=== PATIENT | female | born 1980 | race American Indian/Alaskan Native ===

== ENCOUNTER 2019-12-28 09:39 | Outpatient (CLI) | payer MEDICAID ==
[2019-12-28 11:05] LABS: Blood Urea Nitrogen 6 mg/dL (7-17)
--- NOTE | 2019-12-28 12:57 | Cat Scan Report ---
CT chest w con INDICATION: Breast cancer, follow-up. TECHNIQUE: All CT scans at this location are performed using the following dose modulation technique: Automated exposure control. Helical slices were obtained through the chest following the administration of 100 cc of Omnipaque 300 COMPARISON: Chest CT dated 12/02/2019 FINDINGS: There is a large mass involving the left breast standing into the left axilla superiorly into the lef t navicular region. Size and appearance of the mass appears unchanged from the recent CT. The mass in volves the pectoralis muscles. There is mild adenopathy in the left axilla. There is a stable 11 mm nodule in the right middle lobe of the lung.. There is a 8 mm nodule in the r ight lower lobe the lung, series 2 image 96 is unchanged as well. There several tiny nodules bilatera lly measuring up to 4 mm in diameter. These appear unchanged in retrospect. No new abnormalities are identified in the lungs. No mediastinal adenopathy is seen. The heart size is normal. No acute abnormality is seen in the upper abdomen. On review of bone windows, no acute osseous abnormalities are seen. IMPRESSION: 1. There is an large mass involving the left breast with extension into the left axilla and supracla vicular region. There is mild adenopathy in the left axilla . This appears unchanged from the recent CT. There are pulmonary nodules. The largest measures 11 mm in the right middle lobe. Pulmonary nodules a ppear unchanged from the prior exam. These are suspicious for metastatic disease. Signer Name: Kody Sutton MD Signed: 12/28/2019 12:52 PM Workstation Name: [id number]
--- NOTE | 2019-12-28 16:20 | Nuclear Medicine Report ---
NUCLEAR MEDICINE BONE SCAN, WHOLE BODY INDICATION / CLINICAL INFORMATION: C50.919Malignant neoplasm of unspecified site of unspecified female. TECHNIQUE: 27.5 mCi of Tc-99m MDP were injected IV at 10:00 AM. Patient was instructed to return for imaging at 1:00 PM. Patient did not return for imaging; therefor e, no images were acquired. Signer Name: Eladio Sanches MD Signed: 12/28/2019 4:15 PM Workstation Name: [id number]
[2019-12-29] MEDS ORDERED: ONDANSETRON 4 MG/2 ML INJ ONE (13:43)
== END 2019-12-28 09:40 | disposition home or self-care (01) ==
LOC: NM 09:39
PROVIDERS: ATTEND Internal Medicine Hematology
DX: C50.919 Malignant neoplasm of unspecified site of unspecified female breast (principal); R91.1 Solitary pulmonary nodule; N63.20 Unspecified lump in the left breast, unspecified quadrant; R59.0 Localized enlarged lymph nodes
CPT/HCPCS: 36415; 71260; 78306; 82565; 84520; A9503; Q9967; J2405

== ENCOUNTER 2019-12-29 09:43 | Inpatient (IN) | payer MEDICAID ==
[2019-12-29] MEDS ORDERED: ASPIRIN 325 MG TAB PO ONE (09:53)
[2019-12-29] MEDS ORDERED: SODIUM CHLORIDE 0.9% 1000 ML IV SOLN IV ONE (09:59)
[2019-12-29] MEDS ORDERED: PIPERACILLIN/TAZOBACTAM 3.375 3.375 GM/50 ML BAG IV ONE (10:00)
--- NOTE | 2019-12-29 10:03 | Emergency Department Report ---
ED General Adult HPI - General Chief complaint: Chest Pain Stated complaint: AJ Time Seen by Provider: 12/29/19 09:53 Source: patient Mode of arrival: Stretcher Limitations: No Limitations - History of Present Illness Initial comments: Patient is 39 years old female with history of left breast cancer status post chemotherapy. Patient presented to the ER complaining of left-sided chest pain, fever of 102 last night, nausea and vomiting since last night. Patient denies any shortness of breath or abdominal pain. Patient also denied any dysuria or u rinary frequency. -: Last night Location: chest Severity scale (0 -10): 5 Associated Symptoms: denies other symptoms - Related Data Allergies Allergy/AdvReac Type Severity Reaction Status Date / Time No Known Allergies Allergy Unverified 12/28/19 09:39 ED Review of Systems ROS: Stated complaint: AJ Other details as noted in HPI Comment: All other systems reviewed and negative Constitutional: chills, fever Respiratory: cough. denies: shortness of breath, SOB with exertion, wheezing Cardiovascular: chest pain, palpitations Gastrointestinal: nausea, vomiting. denies: abdominal pain, diarrhea, constipation, hematemesis, melena, hematochezia Genitourinary: denies: urgency, dysuria Musculoskeletal: denies: back pain Neurological: denies: headache, weakness, numbness, paresthesias, confusion, abnormal gait ED Past Medical Hx - Past Medical History Hx Heart Attack/AMI: Yes Hx Asthma: Yes Additional medical history: breast cancer - Surgical History Past Surgical History?: Yes Additional Surgical History: masectomy - Social History Smoking Status: Former Smoker Substance Use Type: None ED Physical Exam - General Limitations: No Limitations General appearance: alert, in no apparent distress - Head Head exam: Present: atraumatic, normocephalic, normal inspection - Eye Eye exam: Present: normal appearance - ENT ENT exam: Present: mucous membranes dry - Neck Neck exam: Present: normal inspection, full ROM. Absent: tenderness, meningismus, lymphadenopathy, thyromegaly - Respiratory Respiratory exam: Present: normal lung sounds bilaterally - Cardiovascular Cardiovascular Exam: Present: tachycardia. Absent: systolic murmur, diastolic murmur - GI/Abdominal GI/Abdominal exam: Present: soft, normal bowel sounds. Absent: distended, guarding, rebound, rigid, organomegaly, mass, bruit, pulsatile mass, hernia - Extremities Exam Extremities exam: Present: normal inspection, full ROM, normal capillary refill. Absent: tenderness, pedal edema, joint swelling, calf tenderness - Back Exam Back exam: Present: normal inspection, full ROM. Absent: CVA tenderness (R), CVA tenderness (L), muscle spasm, paraspinal tenderness, vertebral tenderness - Neurological Exam Neurological exam: Present: alert, oriented X3, CN II-XII intact, normal gait, reflexes normal. Absent: motor sensory deficit - Psychiatric Psychiatric exam: Present: normal mood - Skin Skin exam: Present: warm, intact, normal color ED Course Vital Signs 12/29/19 12/29/19 09:48 09:59 Temperature 98.3 F Pulse Rate 107 H Respiratory 16 Rate Blood Pressure 138/91 O2 Sat by Pulse 100 Oximetry - Consultations Consultation #1: 12/29/19 13:05 I discussed the patient with Dr. Jaquez, patient oncologist. He advised to admit to the hospitalist and consult Dr. Abarca. ED Medical Decision Making - Lab Data Result diagrams: 12/29/19 10:09 12/29/19 10:09 - EKG Data -: EKG Interpreted by Ca EKG shows normal: sinus rhythm Rate: tachycardia - EKG Data Interpretation: no acute changes - Radiology Data Radiology results: report reviewed - Medical Decision Making Patient is 39 years old female with history of left breast cancer status post chemotherapy. Patient presented to the ER complaining of left-sided chest pain, fever of 102 last night, nausea and vomiting since last night. Patient denies any shortness of breath or abdominal pain. Patient also denied any dysuria or urinary frequency. EKG showed sinus tachycardia. Labs reviewed and is unremarkable. Chest x-ray showed possible pneumonia underneath the breast mass. Patient received Zosyn, normal saline. I discussed the patient with Dr. Campos, he agreed to admit the patient to medical service for further management. Critical Care Time: Yes Critical care time in (mins) excluding proc time.: 30 Critical care attestation.: If time is entered above; I have spent that time in minutes in the direct care of this critically ill patient, excluding procedure time. ED Disposition Clinical Impression: Sepsis, Chest pain Disposition: OP ADMIT IP TO THIS HOSP Is pt being admited?: Yes Condition: Stable
[2019-12-29] MEDS ORDERED: MORPHINE 4 MG/1 ML INJ IV ONE ×2 (10:11→11:26)
--- NOTE | 2019-12-29 10:11 | XRay Report ---
Chest single view INDICATION: Chest pain IMPRESSION: Severe left chest wall mass again noted. Cannot exclude opacity within the underlying lef t lung. The right lung is clear. Signer Name: Earle Nguyen MD Signed: 12/29/2019 10:07 AM Workstation Name: [id number]
[2019-12-29 10:22] LABS: Basophils % (Auto) 0.5 % (0.0-1.8); Eosinophils % (Auto) 0.7 % (0.0-4.3); Hematocrit 27.4 % (30.3-42.9); Lymphocytes # (Auto) 1.1 K/mm3 (1.2-5.4); Lymphocytes % (Auto) 17.5 % (13.4-35.0); Mean Corpuscular HGB Conc 33 % (30-34); Mean Corpuscular Volume 82 fl (79-97); Monocytes # (Auto) 0.6 K/mm3 (0.0-0.8); Monocytes % (Auto) 9.5 % (0.0-7.3); Platelet Count 321 K/mm3 (140-440); Red Blood Count 3.32 M/mm3 (3.65-5.03); Red Cell Distribution Width 17.5 % (13.2-15.2)
[2019-12-29] MEDS ORDERED: diphenhydrAMINE 50 MG/ML VIAL IV ONE ×2 (10:26→11:42)
[2019-12-29 10:42] LABS: BUN/Creatinine Ratio 11; Blood Urea Nitrogen 9 mg/dL (7-17); Calcium 9.2 mg/dL (8.4-10.2); Hemolysis Index 6
[2019-12-29 11:55] LABS: Bilirubin,Urine NEG (Negative); Blood,Urine SM (Negative); Color,Urine Straw (Yellow); Mucus,Urine FEW /HPF; Protein,Urine <15 mg/dL mg/dL (Negative); Urobilinogen,Urine < 2.0 mg/dL (<2.0); WBC,Urine < 1.0 /HPF (0.0-6.0)
[2019-12-29] MEDS ORDERED: ONDANSETRON 4 MG/2 ML INJ IV ONE (12:16)
--- NOTE | 2019-12-29 12:21 | History and Physical Report ---
History of Present Illness Chief complaint: My chest hurts when I take a deep breath History of present illness: 39-year-old female with VA, asthma, breast cancer status post 3 rounds of chemotherapy with last treatment on 12/12/2019 presents to ED for evaluation. Patient states that she has experienced left sided chest pain with deep breathing over the past 1 day with persistent symptoms over the same timeframe. Patient also reports fever to 102.5 F overnight with concomitant nausea and 2 episodes of vomiting. EMS notified and upon arrival the patient was found to be in distress and subsequently transported to [facility] for further evaluation and care. Patient seen and evaluated in the emergency department. Lab and imaging studies reviewed. Patient underwent chest x-ray and was found to have left lower lobe infiltrate consistent with pneumonia as well as pleuritic chest pain, hypokalemia, systemic inflammatory response syndrome. Patient placed in observation status and admitted to medical floor and initiated on pneumonia protocol for medical stabilization due to increased risk of decompensation. Pat ient denies chills, hemoptysis, leg swelling, calf pain, prolonged travel/immobility, individual/family history of DVT/PE/bleeding/blood clotting disorder, productive cough, skin rash, recent ill contacts. No prior admission for review. No medication listed at time of admission for reconciliation. Oncology team consulted in ED. CTA chest pending at time of admission. Past History Past Medical History: cancer, other (See HPI) Past Surgical History: mastectomy Social history: single. 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.), no change in shape, no swelling, no mass Cardiovascular: chest pain, no orthopnea, no palpitations, no rapid/irregular heart beat, no edema, no syncope Respiratory: pleurisy, no cough, no cough with sputum, no hemoptysis, no shortness of breath, no dyspnea on exertion Gastrointestinal: no abdominal pain, no nausea, no vomiting, no diarrhea, no constipation Genitourinary Female: no pelvic pain, no flank pain, no menorrhagia, no dysuria, no urinary frequency, no urgency Menstruation: no ammenorrhea, no ammenorrhea on BC, no period normal, no period heavy Rectal: no pain, no incontinence, no bleeding Musculoskeletal: no neck stiffness, no neck pain, no shooting arm pain, no arm numbness/tingling, no low back pain, no shooting leg pain Integumentary: no rash, no pruritis, no redness, no sores, no wounds, no boils, no blisters Neurological: no head injury, no transient paralysis, no paralysis, no weakness, no parathesias, no numbness Psychiatric: no anxiety, no memory loss, no change in sleep habits, no sleep disturbances, no hypersomnia, no change in libido Endocrine: no cold intolerance, no heat intolerance, no polyphagia, no excessive thirst, no polydipsia Hematologic/Lymphatic: no easy bruising, no easy bleeding, no lymphadenopathy, no lymphedema Allergic/Immunologic: no urticaria, no allergic rhinitis, no wheezing, no anaphylaxis, no angioedema Exam - Constitutional Vitals: Temp Pulse Resp BP Pulse Ox 98.3 F 107 H 16 138/91 100 12/29/19 09:59 12/29/19 09:48 12/29/19 09:48 12/29/19 09:48 12/29/19 09:48 General appearance: Present: mild distress - EENT Eyes: Present: PERRL ENT: hearing intact, clear oral mucosa - Neck Neck: Present: supple, normal ROM - Respiratory Respiratory effort: normal Respiratory: left: diminished - Cardiovascular Heart Sounds: Present: S1 & S2. Absent: rub, click - Extremities Extremities: pulses symmetrical, No edema Peripheral Pulses: within normal limits - Abdominal General gastrointestinal: Present: soft, non-tender, non-distended, normal bowel sounds Female genitourinary: Present: normal - Integumentary Integumentary: Present: clear, warm, dry - Musculoskeletal Musculoskeletal: gait normal, strength equal bilaterally - Psychiatric Psychiatric: appropriate mood/affect, intact judgment & insight - Neurologic Neurologic: CNII-XII intact, moves all extremities - Additional findings Additional findings: Nodular density to the left breast extending into the axilla with discharge in the anterior axilla Results - Labs CBC & Chem 7: 12/29/19 10:09 12/29/19 10:09 Labs: Abnormal lab results 12/29/19 12/29/19 12/29/19 Range/Units 10:09 10:09 11:19 RBC 3.32 L (3.65-5.03) M/mm3 Hgb 9.0 L (10.1-14.3) gm/dl Hct 27.4 L (30.3-42.9) % MCH 27 L (28-32) pg RDW 17.5 H (13.2-15.2) % [place] % (Auto) 9.5 H (0.0-7.3) % Lymph # 1.1 L (1.2-5.4) K/mm3 Seg Neutrophils % 71.8 H (40.0-70.0) % Potassium 3.2 L (3.6-5.0) mmol/L Urine pH 8.0 H (5.0-7.0) Assessment and Plan - Patient Problems (1) Pneumonia Current Visit: Yes Status: Acute Qualifiers: Laterality: left Lung location: upper lobe of lung Plan to address problem: Pneumonia protocol: IV antibiotic therapy, CBC, CMP, chest x-ray, pulse oxim etry, nebulizer therapy, blood culture, CT scan of the chest which is pending at time of admission (2) Systemic inflammatory response syndrome Current Visit: Yes Status: Acute Plan to address problem: CBC, CMP, urinalysis, chest x-ray, IV antibiotic therapy, IV fluid resuscitation therapy. (3) Breast cancer Current Visit: Yes Status: Acute Qualifiers: Laterality: left Plan to address problem: Oncology consulted, supportive care, pain control, continue outpatient chemo/radiation therapy as per oncology team (4) Hypokalemia Current Visit: Yes Status: Acute Plan to address problem: BMP, dietary supplementation, repeat BMP in a.m. (5) DVT prophylaxis Current Visit: Yes Status: Acute Plan to address problem: SCD to bilateral lower extremities while in bed, patient is ambulatory.
[2019-12-29] MEDS ORDERED: ACETAMINOPHEN 325 MG TAB PO PRN (12:23)
[2019-12-29] MEDS ORDERED: oxyCODONE /ACETAMINOPHEN 5-325MG TAB PO PRN (12:23)
[2019-12-29] MEDS ORDERED: VANCOMYCIN PHARMACY TO DOSE IV SCH (13:00)
[2019-12-29] MEDS ORDERED: VANCOMYCIN 1,250 MG in SODIUM CHLORIDE 0.9% 250ML 250 ML IV ONE (13:00)
[2019-12-29] MEDS ORDERED: VANCOMYCIN 1,250 MG in SODIUM CHLORIDE 0.9% 500 ML 500 ML IV ONE (13:00)
[2019-12-29] MEDS ORDERED: ALBUTEROL 2.5 MG/3 ML NEBU IH PRN (13:00)
--- NOTE | 2019-12-29 14:06 | Cat Scan Report ---
CTA CHEST WITH IV CONTRAST INDICATION: Chest pain. Shortness of breath. Left breast mass. TECHNIQUE: Axial CT images were obtained through the chest after injection of IV contrast. Coronal oblique 2-D reconstruction images were produced. 3 plane MIP reconstruction images were produced at an [employer] workstation. All CTs at this facility utilize dose reduction techniques including automated expos ure control, iterative reconstruction and weight based dosing when appropriate to reduce patient radi ation dose to as low as reasonable achievable. COMPARISON: CT of the chest, 12/28/2018 FINDINGS: No filling defects are visualized within the central or segmental pulmonary arteries to suggest pulmo nary embolism. The heart is normal in size. There is no evidence of pericardial effusion. Evaluation of the lung parenchyma again demonstrates right lung nodules which have been described on recent prio r studies. No superimposed airspace disease or pleural effusion is visualized. Limited imaging through the upper abdomen shows no evidence of acute abnormality. Evaluation of bony structures demonstrates no acute skeletal abnormality. Evaluation of soft tissue s tructures again demonstrates a large left breast mass abutting and likely invading the left pectorali s muscle. IMPRESSION: 1. No evidence of pulmonary embolism or acute parenchymal process. 2. Right pulmonary nodularity which remains suspicious for metastasis and has been described on recen t previous studies. 3. Large left breast mass most likely representing a primary breast neoplasm. Signer Name: Leidy Singh MD Signed: 12/29/2019 2:02 PM Workstation Name: [id number]
[2019-12-29] MEDS ORDERED: BENADRYL 50 MG PO PRN (15:03)
[2019-12-29] MEDS ORDERED: OXYCODONE 20 MG PO PRN (15:03)
[2019-12-29] MEDS ORDERED: ZOLPIDEM 5 MG TAB PO PRN (15:55)
[2019-12-29] MEDS ORDERED: POLYETHYLENE GLYCOL 3350 17 GM POWDER PO PRN (15:58)
[2019-12-29] MEDS: SODIUM CHLORIDE 0.9% 1000 ML 1,000 ML IV SCH (15:59)
[2019-12-29] MEDS: diphenhydrAMINE 25 MG CAP PO PRN (15:59)
[2019-12-29] MEDS: oxyCODONE 5 MG TAB PO PRN ×2 (15:59→21:39)
[2019-12-29] MEDS: ONDANSETRON 4 MG/2 ML INJ IV SCH ×2 (15:59→23:47)
[2019-12-29] MEDS: CEFEPIME/NS 2 GM/100 ML 2 GM/100 ML BAG IV SCH ×2 (16:11→21:40)
[2019-12-29] MEDS: POLYETHYLENE GLYCOL 3350 17 GM POWDER PO SCH (21:41)
[2019-12-29] MEDS ORDERED: NON-FORMULARY EACH (Ambien 10 MG) PO SCH (22:00)
[2019-12-29] MEDS ORDERED: ENOXAPARIN SC SCH (22:00)
[2019-12-29] MEDS ORDERED: ENOXAPARIN 80 MG/0.8 ML INJ SUB-Q SCH (22:00)
[2019-12-29] MEDS ORDERED: [UNRECOGNIZED DRUG - OTHER] PO SCH (22:00)
[2019-12-29] MEDS: ZOLPIDEM 5 MG TAB PO SCH ×2 (22:47→23:46)
[2019-12-30] MEDS ORDERED: VANCOMYCIN/NS 1 GM/250 ML 1 GM/250 ML BAG IV SCH (01:00)
[2019-12-30 05:06] LABS: Basophils % (Auto) 0.5 % (0.0-1.8); Eosinophils # (Auto) 0.1 K/mm3 (0.0-0.4); Hematocrit 23.8 % (30.3-42.9); Hemoglobin 7.7 gm/dl (10.1-14.3); Lymphocytes # (Auto) 1.4 K/mm3 (1.2-5.4); Lymphocytes % (Auto) 27.1 % (13.4-35.0); Mean Corpuscular HGB Conc 32 % (30-34); Mean Corpuscular Volume 83 fl (79-97); Monocytes # (Auto) 0.5 K/mm3 (0.0-0.8); Monocytes % (Auto) 10.3 % (0.0-7.3); Platelet Count 276 K/mm3 (140-440); Red Blood Count 2.87 M/mm3 (3.65-5.03); Red Cell Distribution Width 17.4 % (13.2-15.2)
[2019-12-30 05:16] LABS: Alanine Aminotransferase 5 units/L (7-56); Albumin 1.7 g/dL (3.9-5); BUN/Creatinine Ratio 13; Blood Urea Nitrogen 4 mg/dL (7-17); Hemolysis Index 0
[2019-12-30 05:37] LABS: Calcium TNR mg/dL (8.4-10.2)
[2019-12-30] MEDS: SODIUM CHLORIDE 0.9% 1000 ML 1,000 ML IV SCH ×2 (05:59→14:44)
[2019-12-30] MEDS: oxyCODONE 5 MG TAB PO PRN ×4 (05:59→23:25)
[2019-12-30] MEDS: CEFEPIME/NS 2 GM/100 ML 2 GM/100 ML BAG IV SCH (06:03)
[2019-12-30 06:10] LABS: Alanine Aminotransferase 10 units/L (7-56); Albumin 3.1 g/dL (3.9-5); BUN/Creatinine Ratio 9; Blood Urea Nitrogen 7 mg/dL (7-17); Calcium 8.4 mg/dL (8.4-10.2); Hemolysis Index 0
[2019-12-30] MEDS: diphenhydrAMINE 25 MG CAP PO PRN ×3 (07:01→21:10)
--- NOTE | 2019-12-30 08:32 | Progress Note ---
Assessment and Plan Assessment and plan: Patient is a 39-year-old woman with a history of CO, asthma, DVT on therapeutic Lovenox and stage 4 metastatic re-current breast cancer s/p chemotherapy with last treatment on 12/12/2019 who presents to [facility] ED with left sided CP, n/v and SOB. Patient was admitted for suspected Pneumonia but disproved on CTA chest. Patient was started on therapeutic Lovenox and she had precipitous drop in H/H. I spoke with her Oncologist Dr. Jaquez; most of her care was in [place]. * pCXR IMPRESSION: Severe left chest wall mass again noted. Cannot exclude opacity within the underlying left lung. The right lung is clear. * CTA chest IMPRESSION: 1. No evidence of pulmonary embolism or acute parenchymal process. 2. Right pulmonary nodularity which remains suspicious for metastasis and has been described on recent previous studies. 3. Large left breast mass most likely representing a primary breast neoplasm. Left sided chest pains with history AMI: stress test in AM Precipitous Drop in H/H, no signs of blooding: repeat levels and stop Lovenox Anemia, acute on chronic AOCD: monitor CBC closely Stage 4 metastatic Breast Cancer: consulted Heme/Onc Ruled out Pneumonia Ruled out SIRS based upon objective data from admission, besides being tachycardia patient was afebrile, normal RR, not hypoxic and WBC was normal Hypokalemia, mild: replete H/O of "blood clot in the neck" on home therapeutic Lovenox; hold for now until Anemia stabilizes Disposition: continue inpatient care until h/h stable and if stress test is negative tomorrow. History Interval history: Patient was seen and examined. Follow-up on current diagnosis of PNA. Overnight uneventful as no events directly reported to me. Patient denies any chest pain, nausea/vomiting or severe headaches. Imaging, nursing note, chart, labs and old chart reviewed. Discussed with patient. Hospitalist Physical - Physical exam Narrative exam: Gen: WDWN, NAD, Awake, Alert, Orientated HEENT: NCAT, EOMI, PERRL, OP Clear Neck: supple, no adenopathy, no thyromegaly, no JVD CVS/Heart: RRR, normal S1S2, pulses present bilaterally Chest/Lungs: CTA B, Symmetrical chest expansion, good air entry bilaterally GI/Abdomen: soft, NTND, good bowel sounds, no guarding or rebound /Bladder: no suprapubic tenderness, no CVA or paraspinal tenderness Extermity/Skin: no c/c/e, no obvious rash MSK: FROM x 4 Neuro: CN 2-12 grossly intact, no new focal deficits Psych: calm Breast: large hard fixed, protuding, softball size left breast mass causing deformity - Constitutional Vitals: Temp Pulse Resp BP Pulse Ox 98.1 F 86 18 100/62 96 12/30/19 05:23 12/30/19 05:23 12/30/19 05:23 12/30/19 05:23 12/30/19 08:11 General appearance: Absent: mild distress ELIZA score - Eliza Score Age > 65: (0) No Aspirin use within the Past 7 Days: (0) No 3 or more CAD Risk Factors: (1) Yes 2 or more Angina events in past 24 hrs: (1) Yes Known CAD with more than 50% Stenosis: (1) Yes Elevated Cardiac Markers: (0) No ST Deviation Greater than 0.5mm: (0) No ELIZA Score: 3 Results - Labs CBC & Chem 7: 12/30/19 Unknown 12/30/19 Unknown Labs: Laboratory Last Values WBC 5.0 K/mm3 (4.5-11.0) 12/30/19 Unknown RBC 2.87 M/mm3 (3.65-5.03) L 12/30/19 Unknown Hgb 7.7 gm/dl (10.1-14.3) L 12/30/19 Unknown Hct 23.8 % (30.3-42.9) L 12/30/19 Unknown MCV 83 fl (79-97) 12/30/19 Unknown MCH 27 pg (28-32) L 12/30/19 Unknown MCHC 32 % (30-34) 12/30/19 Unknown RDW 17.4 % (13.2-15.2) H 12/30/19 Unknown Plt Count 276 K/mm3 (140-440) 12/30/19 Unknown Lymph % (Auto) 27.1 % (13.4-35.0) 12/30/19 Unknown [place] % (Auto) 10.3 % (0.0-7.3) H 12/30/19 Unknown Eos % (Auto) 2.0 % (0.0-4.3) 12/30/19 Unknown Baso % (Auto) 0.5 % (0.0-1.8) 12/30/19 Unknown Lymph # 1.4 K/mm3 (1.2-5.4) 12/30/19 Unknown [place] # 0.5 K/mm3 (0.0-0.8) 12/30/19 Unknown Eos # 0.1 K/mm3 (0.0-0.4) 12/30/19 Unknown Baso # 0.0 K/mm3 (0.0-0.1) 12/30/19 Unknown Seg Neutrophils % 60.1 % (40.0-70.0) 12/30/19 Unknown Seg Neutrophils # 3.0 K/mm3 (1.8-7.7) 12/30/19 Unknown Sodium 144 mmol/L (137-145) 12/30/19 Unknown Potassium TNR 12/30/19 Unknown Chloride 120.9 mmol/L (98-107) H 12/30/19 Unknown Carbon Dioxide TNR 12/30/19 Unknown Anion Gap TNR 12/30/19 Unknown BUN 4 mg/dL (7-17) L 12/30/19 Unknown Creatinine TNR 12/30/19 Unknown Estimated GFR > 60 ml/min 12/30/19 Unknown BUN/Creatinine Ratio 13 % 12/30/19 Unknown Glucose 76 mg/dL (65-100) 12/30/19 Unknown Lactic Acid 1.70 mmol/L (0.7-2.0) 12/29/19 Unknown Calcium TNR 12/30/19 Unknown Total Bilirubin < 0.20 mg/dL (0.1-1.2) 12/30/19 Unknown AST 7 units/L (5-40) 12/30/19 Unknown ALT 5 units/L (7-56) L 12/30/19 Unknown Alkaline Phosphatase 30 units/L (35-129) L 12/30/19 Unknown Troponin T < 0.010 ng/mL (0.00-0.029) 12/29/19 Unknown Total Protein 3.2 g/dL (6.3-8.2) L 12/30/19 Unknown Albumin 1.7 g/dL (3.9-5) L 12/30/19 Unknown Albumin/Globulin Ratio 1.1 % 12/30/19 Unknown Urine Color Straw (Yellow) 12/29/19 11:19 Urine Turbidity Clear (Clear) 12/29/19 11:19 Urine pH 8.0 (5.0-7.0) H 12/29/19 11:19 Ur Specific [place] 1.012 (1.003-1.030) 12/29/19 11:19 Urine Protein <15 mg/dl mg/dL (Negative) 12/29/19 11:19 Urine Glucose (UA) Neg mg/dL (Negative) 12/29/19 11:19 Urine Ketones Neg mg/dL (Negative) 12/29/19 11:19 Urine Blood Sm (Negative) 12/29/19 11:19 Urine Nitrite Neg (Negative) 12/29/19 11:19 Urine Bilirubin Neg (Negative) 12/29/19 11:19 Urine Urobilinogen < 2.0 mg/dL (<2.0) 12/29/19 11:19 Ur Leukocyte Esterase Neg (Negative) 12/29/19 11:19 Urine WBC (Auto) < 1.0 /HPF (0.0-6.0) 12/29/19 11:19 Urine RBC (Auto) 1.0 /HPF (0.0-6.0) 12/29/19 11:19 U Epithel Cells (Auto) 5.0 /HPF (0-13.0) 12/29/19 11:19 Urine Mucus Few /HPF 12/29/19 11:19 Active Medications - Current Medications Current Medications: Generic Name Dose Route Start Last Admin Trade Name Freq PRN Reason Stop Dose Admin Acetaminophen 650 mg 12/29/19 12:23 Tylenol PO Q4H PRN Pain MILD(1-3)/Fever >100.5/SALEEM Albuterol 2.5 mg 12/29/19 13:00 Proventil IH Q4HRT PRN Shortness Of Breath Diphenhydramine HCl 25 mg 12/29/19 15:07 12/30/19 07:01 Benadryl PO 25 mg Q6H PRN Administration Itching Sodium Chloride 1,000 mls @ 100 mls/hr 12/29/19 12:30 12/30/19 05:59 Nacl 0.9% 1000 Ml IV 100 mls/hr DIRECT [facility] Administration Cefepime HCl 2 gm in 100 mls @ 200 mls/hr 12/29/19 13:00 12/30/19 06:03 Cefepime/Ns 2 Gm/100 Ml IV Not Given Q8H [facility] Protocol Vancomycin HCl 1 gm in 250 mls @ 166.667 mls/hr 12/30/19 01:00 12/30/19 01:06 Vancomycin/Ns 1 Gm/250 Ml IV 166.667 mls/hr Q12H [facility] Administration Ondansetron HCl 4 mg 12/29/19 16:00 12/29/19 23:47 Zofran IV 4 mg Q8H [facility] Administration Oxycodone HCl 20 mg 12/29/19 15:33 12/30/19 05:59 Roxicodone PO 20 mg Q4H PRN Administration Pain, Moderate (4-6) Oxycodone/Acetaminophen 1 tab 12/29/19 12:23 12/30/19 01:05 Percocet 5/325 PO 1 tab Q6H PRN Administration Pain, Moderate (4-6) Pneumococcal Polyvalent Vaccine 0.5 ml 12/30/19 12:00 Pneumovax 23 IM 12/30/19 12:01 .ONCE ONE Polyethylene Glycol 17 gm 12/29/19 22:00 12/29/19 21:41 Miralax 3350 PO 17 gm BID [facility] Administration Sodium Chloride 10 ml 12/29/19 22:00 12/29/19 21:41 Sodium Chloride Flush Syringe 10 Ml IV 10 ml BID [facility] Administration Sodium Chloride 10 ml 12/29/19 12:23 Sodium Chloride Flush Syringe 10 Ml IV PRN PRN LINE FLUSH Zolpidem Tartrate 10 mg 12/29/19 22:00 12/29/19 23:46 Ambien PO 10 mg QHS [facility] Administration
[2019-12-30] MEDS: ONDANSETRON 4 MG/2 ML INJ IV SCH ×3 (09:13→23:25)
[2019-12-30] MEDS: POLYETHYLENE GLYCOL 3350 17 GM POWDER PO SCH (09:13)
--- NOTE | 2019-12-30 09:47 | Hem/Onc Consultation ---
History of Present Illness - Reason for Consult Consult date: 12/30/19 breast ca Requesting physician: DELORES HOOKER - History of Present Illness Patient is a 39-year-old woman with a history of [place], asthma, DVT on therapeutic Lovenox and stage 4 metastatic re-current breast cancer s/p chemotherapy with last treatment on 12/12/2019 who presented to [facility] ED with left sided CP, n/v and SOB. Patient was admitted for suspected Pneumonia - CTA chest. Patient was started on therapeutic Lovenox and she then had precipitous drop in H/H. her Oncologist Dr. Jaquez; most of her care was in [place]. pCXR IMPRESSION: Severe left chest wall mass again noted. Cannot exclude opacity within the underlying left lung. The right lung is clear. CTA chest IMPRESSION: 1. No evidence of pulmonary embolism or acute parenchymal process. 2. Right pulmonary nodularity which remains suspicious for metastasis and has been described on recent previous studies. 3. Large left breast mass most likely representing a primary breast neoplasm. Anemia, acute on chronic AOCD: monitor CBC closely Stage 4 metastatic Breast Cancer: H/O of "blood clot in the neck" on home therapeutic Lovenox; on hold until Anemia stabilizes h/o left breast ca - 2011 [place] relapse in 2018 moved to [facility] - following Dr Jaquez - pt says 2 chemo given - as not working - plan to change chemo Past History Past Medical History: cancer, other (See HPI) Past Surgical History: mastectomy Social history: single. denies: smoking, alcohol abuse, prescription drug abuse Family history: hypertension Medications and Allergies Allergies Allergy/AdvReac Type Severity Reaction Status Date / Time No Known Allergies Allergy Verified 12/29/19 13:26 Home Medications Medication Instructions Recorded Confirmed Last Taken Type Ambien 10 mg PO HS 12/29/19 12/29/19 12/27/19 History Benadryl 50 mg PO Q6H PRN 12/29/19 12/29/19 12/28/19 History Lovenox 80 units SC BID 12/29/19 12/29/19 12/29/19 06:00 History Miralax 3350 2 tbsp PO BID 12/29/19 12/29/19 12/29/19 History oxyCODONE 20 mg PO Q4H PRN 12/29/19 12/29/19 12/28/19 History Active Meds: Active Medications Acetaminophen (Tylenol) 650 mg PO Q4H PRN PRN Reason: Pain MILD(1-3)/Fever >100.5/SALEEM Albuterol (Proventil) 2.5 mg IH Q4HRT PRN PRN Reason: Shortness Of Breath Diphenhydramine HCl (Benadryl) 25 mg PO Q6H PRN PRN Reason: Itching Last Admin: 12/30/19 07:01 Dose: 25 mg Documented by: Sodium Chloride (Nacl 0.9% 1000 Ml) 1,000 mls @ 100 mls/hr IV DIRECT [facility] Last Admin: 12/30/19 05:59 Dose: 100 mls/hr Documented by: Cefepime HCl (Cefepime/Ns 2 Gm/100 Ml) 2 gm in 100 mls @ 200 mls/hr IV Q8H [facility]; Protocol Last Admin: 12/30/19 06:03 Dose: Not Given Documented by: Vancomycin HCl (Vancomycin/Ns 1 Gm/250 Ml) 1 gm in 250 mls @ 166.667 mls/hr IV Q12H [facility] Last Admin: 12/30/19 01:06 Dose: 166.667 mls/hr Documented by: Ondansetron HCl (Zofran) 4 mg IV Q8H [facility] Last Admin: 12/30/19 09:13 Dose: 4 mg Documented by: Oxycodone HCl (Roxicodone) 20 mg PO Q4H PRN PRN Reason: Pain, Moderate (4-6) Last Admin: 12/30/19 05:59 Dose: 20 mg Documented by: Oxycodone/Acetaminophen (Percocet 5/325) 1 tab PO Q6H PRN PRN Reason: Pain, Moderate (4-6) Last Admin: 12/30/19 01:05 Dose: 1 tab Documented by: Pneumococcal Polyvalent Vaccine (Pneumovax 23) 0.5 ml IM .ONCE ONE Stop: 12/30/19 12:01 Polyethylene Glycol (Miralax 3350) 17 gm PO BID [facility] Last Admin: 12/30/19 09:13 Dose: 17 gm Documented by: Sodium Chloride (Sodium Chloride Flush Syringe 10 Ml) 10 ml IV BID [facility] Last Admin: 12/30/19 09:14 Dose: 10 ml Documented by: Sodium Chloride (Sodium Chloride Flush Syringe 10 Ml) 10 ml IV PRN PRN PRN Reason: LINE FLUSH Zolpidem Tartrate (Ambien) 10 mg PO QHS [facility] Last Admin: 12/29/19 23:46 Dose: 10 mg Documented by: Review of Systems Constitutional: other (pain chest) Ears, nose, mouth and throat: no epistaxis Breasts: mass (left breast/chest) Cardiovascular: chest pain, no edema Respiratory: no hemoptysis Gastrointestinal: no diarrhea Rectal: no pain Musculoskeletal: no neck pain Neurological: no paralysis Endocrine: no cold intolerance, no heat intolerance Hematologic/Lymphatic: no easy bruising Exam - Exam Narrative Exam: Gen: Awake, Alert, Orientated HEENT: NCAT, EOMI, PERRL, OP Clear Neck: supple, no adenopathy, no thyromegaly, no JVD CVS/Heart: RRR, normal S1S2, pulses present bilaterally Chest/Lungs: CTA B, Symmetrical chest expansion, good air entry bilaterally Breast: large hard fixed, protuding, softball size left breast mass causing deformity GI/Abdomen: soft, NTND, good bowel sounds, no guarding or rebound /Bladder: no suprapubic tenderness, no CVA or paraspinal tenderness Extermity/Skin: no c/c/e, no obvious rash MSK: moving limbs Neuro: no new focal deficits Psych: calm - Constitutional Vitals: Last Vital Signs Temp 98.1 F 12/30/19 05:23 Pulse 86 12/30/19 05:23 Resp 18 12/30/19 05:23 BP 100/62 12/30/19 05:23 Pulse Ox 96 12/30/19 08:11 General appearance: mild distress Performance status: 3-limited selfcare - EENT ENT: hearing intact Results - Labs lab Results: Laboratory Results - last 24 hr 12/29/19 12/29/19 12/29/19 10:09 10:09 10:09 WBC 6.6 RBC 3.32 L Hgb 9.0 L Hct 27.4 L MCV 82 MCH 27 L MCHC 33 RDW 17.5 H Plt Count 321 Lymph % (Auto) 17.5 [place] % (Auto) 9.5 H Eos % (Auto) 0.7 Baso % (Auto) 0.5 Lymph # 1.1 L [place] # 0.6 Eos # 0.0 Baso # 0.0 Seg Neutrophils % 71.8 H Seg Neutrophils # 4.7 Sodium 138 Potassium 3.2 L Chloride 99.7 Carbon Dioxide 25 Anion Gap 17 BUN 9 Creatinine 0.8 Estimated GFR > 60 BUN/Creatinine Ratio 11 Glucose 92 Lactic Acid 1.20 Calcium 9.2 Total Bilirubin AST ALT Alkaline Phosphatase Troponin T < 0.010 Total Protein Albumin Albumin/Globulin Ratio Urine Color Urine Turbidity Urine pH Ur Specific [place] Urine Protein Urine Glucose (UA) Urine Ketones Urine Blood Urine Nitrite Urine Bilirubin Urine Urobilinogen Ur Leukocyte Esterase Urine WBC (Auto) Urine RBC (Auto) U Epithel Cells (Auto) Urine Mucus 12/29/19 12/29/19 12/29/19 11:19 Unknown Unknown WBC RBC Hgb Hct MCV MCH MCHC RDW Plt Count Lymph % (Auto) [place] % (Auto) Eos % (Auto) Baso % (Auto) Lymph # Clarke # Eos # Baso # Seg Neutrophils % Seg Neutrophils # Sodium Potassium Chloride Carbon Dioxide Anion Gap BUN Creatinine Estimated GFR BUN/Creatinine Ratio Glucose Lactic Acid 1.70 Calcium Total Bilirubin AST ALT Alkaline Phosphatase Troponin T < 0.010 Total Protein Albumin Albumin/Globulin Ratio Urine Color Straw Urine Turbidity Clear Urine pH 8.0 H Ur Specific [place] 1.012 Urine Protein <15 mg/dl Urine Glucose (UA) Neg Urine Ketones Neg Urine Blood Sm Urine Nitrite Neg Urine Bilirubin Neg Urine Urobilinogen < 2.0 Ur Leukocyte Esterase Neg Urine WBC (Auto) < 1.0 Urine RBC (Auto) 1.0 U Epithel Cells (Auto) 5.0 Urine Mucus Few 12/30/19 12/30/19 12/30/19 05:51 Unknown Unknown WBC 5.0 RBC 2.87 L Hgb 7.7 L Hct 23.8 L MCV 83 MCH 27 L MCHC 32 RDW 17.4 H Plt Count 276 Lymph % (Auto) 27.1 [place] % (Auto) 10.3 H Eos % (Auto) 2.0 Baso % (Auto) 0.5 Lymph # 1.4 Clarke # 0.5 Eos # 0.1 Baso # 0.0 Seg Neutrophils % 60.1 Seg Neutrophils # 3.0 Sodium 138 144 Potassium 3.4 L TNR Chloride 102.1 120.9 H Carbon Dioxide 27 TNR Anion Gap 12 TNR BUN 7 4 L Creatinine 0.8 TNR Estimated GFR > 60 > 60 BUN/Creatinine Ratio 9 13 Glucose 99 76 Lactic Acid Calcium 8.4 TNR Total Bilirubin 0.20 < 0.20 AST 16 7 ALT 10 5 L Alkaline Phosphatase 55 30 L Troponin T Total Protein 5.9 L D 3.2 L Albumin 3.1 L 1.7 L Albumin/Globulin Ratio 1.1 1.1 Urine Color Urine Turbidity Urine pH Ur Specific [place] Urine Protein Urine Glucose (UA) Urine Ketones Urine Blood Urine Nitrite Urine Bilirubin Urine Urobilinogen Ur Leukocyte Esterase Urine WBC (Auto) Urine RBC (Auto) U Epithel Cells (Auto) Urine Mucus Assessment and Plan left breast ca - stage IV pt says first in 2011 relapse 2018 moved [place] large left chest mass s/p 2 sessions of chemo - last 12/12/2019 - dr Amado Jaqeuz following # Anemia - Likely chemo or tumor related history of [place], asthma, DVT on therapeutic Lovenox admitted with left sided CP, n/v and SOB. pCXR IMPRESSION: Severe left chest wall mass again noted. Cannot exclude opacity within the underlying left lung. The right lung is clear. CTA chest IMPRESSION: 1. No evidence of pulmonary embolism or acute parenchymal process. 2. Right pulmonary nodularity which remains suspicious for metastasis and has been described on recent previous studies. 3. Large left breast mass most likely representing a primary breast neoplasm. - Patient Problems (1) Breast cancer Current Visit: Yes Status: Acute Qualifiers: Laterality: left
[2019-12-30] MEDS ORDERED: ACETAMINOPHEN 325 MG TAB PO PRN (11:35)
[2019-12-30] MEDS ORDERED: POTASSIUM CHLORIDE ER 20 MEQ TAB PO ONE (12:00)
[2019-12-30] MEDS ORDERED: PNEUMOCOCCAL 23 Valent 0.5 ML VIAL IM ONE (12:00)
[2019-12-30 14:58] LABS: Hematocrit 25.8 % (30.3-42.9); Hemoglobin 8.3 gm/dl (10.1-14.3)
[2019-12-31] MEDS: SODIUM CHLORIDE 0.9% 1000 ML 1,000 ML IV SCH ×2 (01:45→16:25)
[2019-12-31] MEDS ORDERED: MORPHINE 2 MG/1 ML INJ IV ONE (05:00)
[2019-12-31] MEDS: diphenhydrAMINE 50 MG/ML VIAL IV PRN ×3 (06:07→19:16)
[2019-12-31 06:42] LABS: Hematocrit 24.5 % (30.3-42.9); Hemoglobin 7.9 gm/dl (10.1-14.3); Mean Corpuscular HGB Conc 32 % (30-34); Mean Corpuscular Volume 83 fl (79-97); Platelet Count 305 K/mm3 (140-440); Red Blood Count 2.95 M/mm3 (3.65-5.03)
[2019-12-31 07:04] LABS: BUN/Creatinine Ratio 6; Blood Urea Nitrogen 5 mg/dL (7-17); Calcium 8.8 mg/dL (8.4-10.2); Hemolysis Index 1
--- NOTE | 2019-12-31 07:48 | Hem/Onc Progress Note ---
Assessment and Plan left breast ca - stage IV pt says first in 2011 relapse 2018 [place] large left chest mass s/p 2 sessions of chemo - last 12/12/2019 - dr Amado Jaquez following # Anemia - Likely chemo or tumor related # history of [place], asthma, # DVT on therapeutic Lovenox admitted with left sided CP, n/v and SOB. pCXR IMPRESSION: Severe left chest wall mass again noted. Cannot exclude opacity within the underlying left lung. The right lung is clear. CTA chest IMPRESSION: 1. No evidence of pulmonary embolism or acute parenchymal process. 2. Right pulmonary nodularity which remains suspicious for metastasis and has been described on recent previous studies. 3. Large left breast mass most likely representing a primary breast neoplasm. - Patient Problems (1) Breast cancer Current Visit: Yes Status: Acute Qualifiers: Patient sex: female Laterality: left Subjective Date of service: 12/31/19 Principal diagnosis: breast ca - stage IV - anemia Interval history: h/o chest pain Objective - Exam Narrative Exam: Gen: Awake, Alert, Orientated HEENT: NCAT, EOMI, PERRL, OP Clear Neck: supple, no adenopathy, no thyromegaly, no JVD CVS/Heart: normal S1S2, pulses present bilaterally Chest/Lungs: CTA B, Symmetrical chest expansion, good air entry bilaterally Breast: large hard fixed, protuding, softball size left breast mass causing deformity GI/Abdomen: soft, NTND, good bowel sounds, no guarding or rebound /Bladder: no suprapubic tenderness, no CVA or paraspinal tenderness Extermity/Skin: no c/c/e, no obvious rash MSK: moving limbs Neuro: no new focal deficits Psych: calm - Constitutional Vitals: Last Vital Signs Temp 98.8 F 12/31/19 04:41 Pulse 90 12/31/19 04:41 Resp 18 12/31/19 06:37 BP 113/71 12/31/19 04:41 Pulse Ox 97 12/31/19 04:41 - Labs Lab Results: Laboratory Results - last 24 hr 12/30/19 12/31/19 12/31/19 14:30 06:00 06:00 WBC 5.6 RBC 2.95 L Hgb 8.3 L 7.9 L Hct 25.8 L 24.5 L MCV 83 MCH 27 L MCHC 32 RDW 17.0 H Plt Count 305 Sodium 136 L Potassium 3.8 Chloride 100.3 Carbon Dioxide 24 Anion Gap 16 BUN 5 L Creatinine 0.8 Estimated GFR > 60 BUN/Creatinine Ratio 6 Glucose 88 Calcium 8.8 Medications & Allergies - Medications Allergies/Adverse Reactions: Allergies No Known Allergies Allergy (Verified 12/29/19 13:26) Home Medications: Home Medications Medication Instructions Recorded Confirmed Last Taken Type Ambien 10 mg PO HS 12/29/19 12/29/19 12/27/19 History Benadryl 50 mg PO Q6H PRN 12/29/19 12/29/19 12/28/19 History Lovenox 80 units SC BID 12/29/19 12/29/19 12/29/19 06:00 History Miralax 3350 2 tbsp PO BID 12/29/19 12/29/19 12/29/19 History oxyCODONE 20 mg PO Q4H PRN 12/29/19 12/29/19 12/28/19 History Active Medications: Generic Name Dose Route Start Last Admin Trade Name Freq PRN Reason Stop Dose Admin Acetaminophen 325 mg 12/30/19 11:35 Tylenol PO Q4H PRN Pain MILD(1-3)/Fever >100.5/SALEEM Albuterol 2.5 mg 12/29/19 13:00 Proventil IH Q4HRT PRN Shortness Of Breath Diphenhydramine HCl 25 mg 12/29/19 15:07 12/30/19 21:10 Benadryl PO 25 mg Q6H PRN Administration Itching Diphenhydramine HCl 25 mg 12/31/19 04:28 12/31/19 06:07 Benadryl IV 25 mg Q6H PRN Administration itching Sodium Chloride 1,000 mls @ 100 mls/hr 12/29/19 12:30 12/31/19 01:45 Nacl 0.9% 1000 Ml IV 100 mls/hr DIRECT [facility] Administration Ondansetron HCl 4 mg 12/29/19 16:00 12/30/19 23:25 Zofran IV 4 mg Q8H [facility] Administration Oxycodone HCl 20 mg 12/29/19 15:33 12/30/19 23:25 Roxicodone PO 20 mg Q4H PRN Administration Pain, Moderate (4-6) Oxycodone/Acetaminophen 1 tab 12/29/19 12:23 12/30/19 01:05 Percocet 5/325 PO 1 tab Q6H PRN Administration Pain, Moderate (4-6) Sodium Chloride 10 ml 12/29/19 22:00 12/30/19 21:10 Sodium Chloride Flush Syringe 10 Ml IV 10 ml BID [facility] Administration Sodium Chloride 10 ml 12/29/19 12:23 Sodium Chloride Flush Syringe 10 Ml IV PRN PRN LINE FLUSH
[2019-12-31] MEDS: ONDANSETRON 4 MG/2 ML INJ IV SCH ×2 (08:18→16:30)
[2019-12-31] MEDS ORDERED: REGADENOSON 0.4 MG/5 ML INJ IV ONE (08:20)
[2019-12-31] MEDS: oxyCODONE 5 MG TAB PO PRN ×3 (08:29→19:16)
--- NOTE | 2019-12-31 09:14 | Progress Note ---
Assessment and Plan Assessment and plan: Patient is a 39-year-old woman with a history of [place], asthma, DVT on therapeutic Lovenox and stage 4 metastatic re-current breast cancer s/p chemotherapy with last treatment on 12/12/2019 who presents to [facility] ED with left sided CP, n/v and SOB. Patient was admitted for suspected Pneumonia but disproved on CTA chest. Patient was started on therapeutic Lovenox and she had precipitous drop in H/H. I spoke with her Oncologist Dr. Jaquez; most of her care was in [place] discovered 2011, had cardiac arrest on the table during mastectomy, cancer relapse, moved to [facility] for second opionon, started following Dr Jaquez - pt says 2 chemo given - as not working - plan to change chemo * pCXR IMPRESSION: Severe left chest wall mass again noted. Cannot exclude opacity within the underlying left lung. The right lung is clear. * CTA chest IMPRESSION: 1. No evidence of pulmonary embolism or acute p arenchymal process. 2. Right pulmonary nodularity which remains suspicious for metastasis and has been described on recent previous studies. 3. Large left breast mass most likely representing a primary breast neoplasm. Left sided chest pains with history AMI, suspect Costochondritis: stress test Precipitous Drop in H/H, no signs of blooding: repeat levels and stop Lovenox Anemia, acute on chronic AOCD: monitor CBC closely Stage 4 metastatic Breast Cancer: consulted Heme/Onc Ruled out Pneumonia Ruled out SIRS based upon objective data from admission, besides being tac hycardia patient was afebrile, normal RR, not hypoxic and WBC was normal Hypokalemia, mild: replete H/O of "blood clot in the neck" on home therapeutic Lovenox; hold for now until Anemia stabilizes Disposition: continue inpatient care until h/h stable and if stress test is negative today. h/h still lower than yesterday, will recheck in AM, if hemoglobin doesn't drop anymore, can discharge as long as stress test is negative today. History Interval history: Patient was seen and examined. Follow-up on current diagnosis of PNA. Overnight uneventful as no events directly reported to me. Patient denies any chest pain, nausea/vomiting or severe headaches. Imaging, nursing note, chart, labs and old chart reviewed. Discussed with patient. Hospitalist Physical - Physical exam Narrative exam: Gen: WDWN, NAD, Awake, Alert, Orientated HEENT: NCAT, EOMI, PERRL, OP Clear Neck: supple, no adenopathy, no thyromegaly, no JVD CVS/Heart: RRR, normal S1S2, pulses present bilaterally Chest/Lungs: CTA B, Symmetrical chest expansion, good air entry bilaterally, reproducible chest wall tenderness with touch GI/Abdomen: soft, NTND, good bowel sounds, no guarding or rebound /Bladder: no suprapubic tenderness, no CVA or paraspinal tenderness Extermity/Skin: no c/c/e, no obvious rash MSK: FROM x 4 Neuro: CN 2-12 grossly intact, no new focal deficits Psych: calm Breast: large hard fixed, protuding, softball size left breast mass causing deformity - Constitutional Vitals: Temp Pulse Resp BP Pulse Ox 98.8 F 90 18 113/71 97 12/31/19 04:41 12/31/19 04:41 12/31/19 06:37 12/31/19 04:41 12/31/19 04:41 General appearance: Absent: mild distress ELIZA score - Eliza Score Age > 65: (0) No Aspirin use within the Past 7 Days: (0) No 3 or more CAD Risk Factors: (1) Yes 2 or more Angina events in past 24 hrs: (1) Yes Known CAD with more than 50% Stenosis: (1) Yes Elevated Cardiac Markers: (0) No ST Deviation Greater than 0.5mm: (0) No ELIZA Score: 3 Results - Labs CBC & Chem 7: 12/31/19 06:00 12/31/19 06:00 Labs: Laboratory Last Values WBC 5.6 K/mm3 (4.5-11.0) 12/31/19 06:00 RBC 2.95 M/mm3 (3.65-5.03) L 12/31/19 06:00 Hgb 7.9 gm/dl (10.1-14.3) L 12/31/19 06:00 Hct 24.5 % (30.3-42.9) L 12/31/19 06:00 MCV 83 fl (79-97) 12/31/19 06:00 MCH 27 pg (28-32) L 12/31/19 06:00 MCHC 32 % (30-34) 12/31/19 06:00 RDW 17.0 % (13.2-15.2) H 12/31/19 06:00 Plt Count 305 K/mm3 (140-440) 12/31/19 06:00 Lymph % (Auto) 27.1 % (13.4-35.0) 12/30/19 Unknown [place] % (Auto) 10.3 % (0.0-7.3) H 12/30/19 Unknown Eos % (Auto) 2.0 % (0.0-4.3) 12/30/19 Unknown Baso % (Auto) 0.5 % (0.0-1.8) 12/30/19 Unknown Lymph # 1.4 K/mm3 (1.2-5.4) 12/30/19 Unknown [place] # 0.5 K/mm3 (0.0-0.8) 12/30/19 Unknown Eos # 0.1 K/mm3 (0.0-0.4) 12/30/19 Unknown Baso # 0.0 K/mm3 (0.0-0.1) 12/30/19 Unknown Seg Neutrophils % 60.1 % (40.0-70.0) 12/30/19 Unknown Seg Neutrophils # 3.0 K/mm3 (1.8-7.7) 12/30/19 Unknown Sodium 136 mmol/L (137-145) L 12/31/19 06:00 Potassium 3.8 mmol/L (3.6-5.0) 12/31/19 06:00 Chloride 100.3 mmol/L (98-107) 12/31/19 06:00 Carbon Dioxide 24 mmol/L (22-30) 12/31/19 06:00 Anion Gap 16 mmol/L 12/31/19 06:00 BUN 5 mg/dL (7-17) L 12/31/19 06:00 Creatinine 0.8 mg/dL (0.7-1.2) 12/31/19 06:00 Estimated GFR > 60 ml/min 12/31/19 06:00 BUN/Creatinine Ratio 6 % 12/31/19 06:00 Glucose 88 mg/dL (65-100) 12/31/19 06:00 Lactic Acid 1.70 mmol/L (0.7-2.0) 12/29/19 Unknown Calcium 8.8 mg/dL (8.4-10.2) 12/31/19 06:00 Total Bilirubin < 0.20 mg/dL (0.1-1.2) 12/30/19 Unknown AST 7 units/L (5-40) 12/30/19 Unknown ALT 5 units/L (7-56) L 12/30/19 Unknown Alkaline Phosphatase 30 units/L (35-129) L 12/30/19 Unknown Troponin T < 0.010 ng/mL (0.00-0.029) 12/29/19 Unknown Total Protein 3.2 g/dL (6.3-8.2) L 12/30/19 Unknown Albumin 1.7 g/dL (3.9-5) L 12/30/19 Unknown Albumin/Globulin Ratio 1.1 % 12/30/19 Unknown Urine Color Straw (Yellow) 12/29/19 11:19 Urine Turbidity Clear (Clear) 12/29/19 11:19 Urine pH 8.0 (5.0-7.0) H 12/29/19 11:19 Ur Specific [place] 1.012 (1.003-1.030) 12/29/19 11:19 Urine Protein <15 mg/dl mg/dL (Negative) 12/29/19 11:19 Urine Glucose (UA) Neg mg/dL (Negative) 12/29/19 11:19 Urine Ketones Neg mg/dL (Negative) 12/29/19 11:19 Urine Blood Sm (Negative) 12/29/19 11:19 Urine Nitrite Neg (Negative) 12/29/19 11:19 Urine Bilirubin Neg (Negative) 12/29/19 11:19 Urine Urobilinogen < 2.0 mg/dL (<2.0) 12/29/19 11:19 Ur Leukocyte Esterase Neg (Negative) 12/29/19 11:19 Urine WBC (Auto) < 1.0 /HPF (0.0-6.0) 12/29/19 11:19 Urine RBC (Auto) 1.0 /HPF (0.0-6.0) 12/29/19 11:19 U Epithel Cells (Auto) 5.0 /HPF (0-13.0) 12/29/19 11:19 Urine Mucus Few /HPF 12/29/19 11:19 Active Medications - Current Medications Current Medications: Generic Name Dose Route Start Last Admin Trade Name Freq PRN Reason Stop Dose Admin Acetaminophen 325 mg 12/30/19 11:35 Tylenol PO Q4H PRN Pain MILD(1-3)/Fever >100.5/SALEEM Albuterol 2.5 mg 12/29/19 13:00 Proventil IH Q4HRT PRN Shortness Of Breath Diphenhydramine HCl 25 mg 12/29/19 15:07 12/30/19 21:10 Benadryl PO 25 mg Q6H PRN Administration Itching Diphenhydramine HCl 25 mg 12/31/19 04:28 12/31/19 06:07 Benadryl IV 25 mg Q6H PRN Administration itching Sodium Chloride 1,000 mls @ 100 mls/hr 12/29/19 12:30 12/31/19 01:45 Nacl 0.9% 1000 Ml IV 100 mls/hr DIRECT [facility] Administration Ondansetron HCl 4 mg 12/29/19 16:00 12/31/19 08:18 Zofran IV 4 mg Q8H [facility] Administration Oxycodone HCl 20 mg 12/29/19 15:33 12/31/19 08:29 Roxicodone PO 20 mg Q4H PRN Administration Pain, Moderate (4-6) Oxycodone/Acetaminophen 1 tab 12/29/19 12:23 12/30/19 01:05 Percocet 5/325 PO 1 tab Q6H PRN Administration Pain, Moderate (4-6) Sodium Chloride 10 ml 12/29/19 22:00 12/31/19 08:19 Sodium Chloride Flush Syringe 10 Ml IV 10 ml BID [facility] Administration Sodium Chloride 10 ml 12/29/19 12:23 Sodium Chloride Flush Syringe 10 Ml IV PRN PRN LINE FLUSH
[2019-12-31] MEDS: MORPHINE 2 MG/1 ML INJ IV PRN ×2 (16:25→20:13)
[2020-01-01] MEDS: MORPHINE 2 MG/1 ML INJ IV PRN ×2 (00:14→11:42)
[2020-01-01] MEDS: ONDANSETRON 4 MG/2 ML INJ IV SCH ×2 (00:14→08:53)
[2020-01-01] MEDS: diphenhydrAMINE 50 MG/ML VIAL IV PRN ×2 (02:00→08:51)
[2020-01-01] MEDS: oxyCODONE 5 MG TAB PO PRN ×3 (02:01→15:14)
[2020-01-01] MEDS: SODIUM CHLORIDE 0.9% 1000 ML 1,000 ML IV SCH ×2 (02:05→11:44)
--- NOTE | 2020-01-01 07:33 | Hem/Onc Progress Note ---
Assessment and Plan left breast ca - stage IV pt says first in 2011 relapse 2018 moved [place] chest mass s/p 2 sessions of chemo - last 12/12/2019 - dr Amado Jaquez following # Anemia - Likely chemo or tumor related # history of [place], asthma, # DVT on therapeutic Lovenox admitted with left sided CP, n/v and SOB. pCXR IMPRESSION: Severe left chest wall mass again noted. Cannot exclude opacity within the underlying left lung. The right lung is clear. CTA chest IMPRESSION: 1. No evidence of pulmonary embolism or acute parenchymal process. 2. Right pulmonary nodularity which remains suspicious for metastasis and has been described on recent previous studies. 3. Large left breast mass most likely representing a primary breast neoplasm. pt will see dr Jaquez as OP - Patient Problems (1) Breast cancer Current Visit: Yes Status: Acute Qualifiers: Patient sex: female Laterality: left Subjective Date of service: 01/01/20 Principal diagnosis: breast cancer Interval history: h/o SOB Objective - Exam Narrative Exam: Gen: Awake, Alert, Orientated HEENT: NCAT, EOMI, PERRL, OP Clear Neck: supple, no adenopathy, no thyromegaly, no JVD CVS/Heart: normal S1S2, pulses present bilaterally Chest/Lungs: CTA B, Symmetrical chest expansion, good air entry bilaterally Breast: large hard fixed, protuding, softball size left breast mass causing deformity GI/Abdomen: soft, NTND, good bowel sounds, no guarding or rebound /Bladder: no suprapubic tenderness, no CVA or paraspinal tenderness Extermity/Skin: no c/c/e, no obvious rash MSK: moving limbs Neuro: no new focal deficits Psych: calm - Constitutional Vitals: Last Vital Signs Temp 98.3 F 01/01/20 04:29 Pulse 87 01/01/20 04:29 Resp 16 01/01/20 04:29 BP 104/71 01/01/20 04:29 Pulse Ox 95 01/01/20 04:29 Medications & Allergies - Medications Allergies/Adverse Reactions: Allergies No Known Allergies Allergy (Verified 12/29/19 13:26) Home Medications: Home Medications Medication Instructions Recorded Confirmed Last Taken Type Ambien 10 mg PO HS 12/29/19 12/29/19 12/27/19 History Benadryl 50 mg PO Q6H PRN 12/29/19 12/29/19 12/28/19 History Lovenox 80 units SC BID 12/29/19 12/29/19 12/29/19 06:00 History Miralax 3350 2 tbsp PO BID 12/29/19 12/29/19 12/29/19 History oxyCODONE 20 mg PO Q4H PRN 12/29/19 12/29/19 12/28/19 History Active Medications: Generic Name Dose Route Start Last Admin Trade Name Freq PRN Reason Stop Dose Admin Acetaminophen 325 mg 12/30/19 11:35 Tylenol PO Q4H PRN Pain MILD(1-3)/Fever >100.5/SALEEM Albuterol 2.5 mg 12/29/19 13:00 Proventil IH Q4HRT PRN Shortness Of Breath Diphenhydramine HCl 25 mg 12/29/19 15:07 12/30/19 21:10 Benadryl PO 25 mg Q6H PRN Administration Itching Diphenhydramine HCl 25 mg 12/31/19 04:28 01/01/20 02:00 Benadryl IV 25 mg Q6H PRN Administration itching Sodium Chloride 1,000 mls @ 100 mls/hr 12/29/19 12:30 01/01/20 02:05 Nacl 0.9% 1000 Ml IV 100 mls/hr DIRECT [facility] Administration Morphine Sulfate 2 mg 12/31/19 16:16 01/01/20 00:14 Morphine IV 2 mg Q4H PRN Administration Pain , Severe (7-10) Ondansetron HCl 4 mg 12/29/19 16:00 01/01/20 00:14 Zofran IV 4 mg Q8H [facility] Administration Oxycodone HCl 20 mg 12/29/19 15:33 01/01/20 02:01 Roxicodone PO 20 mg Q4H PRN Administration Pain, Moderate (4-6) Sodium Chloride 10 ml 12/29/19 22:00 01/01/20 00:15 Sodium Chloride Flush Syringe 10 Ml IV 10 ml BID [facility] Administration Sodium Chloride 10 ml 12/29/19 12:23 Sodium Chloride Flush Syringe 10 Ml IV PRN PRN LINE FLUSH
[2020-01-01 08:06] LABS: Hematocrit 23.1 % (30.3-42.9); Hemoglobin 7.5 gm/dl (10.1-14.3); Mean Corpuscular HGB Conc 32 % (30-34); Mean Corpuscular Volume 82 fl (79-97); Platelet Count 319 K/mm3 (140-440); Red Blood Count 2.84 M/mm3 (3.65-5.03); Red Cell Distribution Width 16.7 % (13.2-15.2)
[2020-01-01 08:28] LABS: BUN/Creatinine Ratio 9; Blood Urea Nitrogen 6 mg/dL (7-17); Calcium 8.5 mg/dL (8.4-10.2); Hemolysis Index 0
--- NOTE | 2020-01-01 12:46 | Discharge Summary ---
Providers - Providers Date of Admission: 12/30/19 08:15 Date of discharge: 01/01/20 Attending physician: SUSAN AGUILAR 12/29/19 13:05 Consult to Physician [CONS] Stat Comment: Consulting Provider: BLU ANDREW Physician Instructions: Reason For Exam: Sepsis, left breast cancer, chemotherapy Primary care physician: CLIENT SERVER DEVELOPER Hospitalization Condition: Stable Hospital course: Patient is a 39-year-old woman with a history of CA, asthma, DVT on therapeutic Lovenox and stage 4 metastatic re-current breast cancer s/p chemotherapy with last treatment on 12/12/2019 who presents to [facility] ED with left sided CP, n/v and SOB. Patient was admitted for suspected Pneumonia but disproved on CTA chest. Patient was started on therapeutic Lovenox and she had precipitous drop in H/H. I spoke with her Oncologist Dr. Jaquez; most of her care was in [place] discovered 2011, had cardiac arrest on the table during mastectomy, cancer relapse, moved to [facility] for second opionon, started following Dr Jaquez - pt says 2 chemo given - as not working - plan to change chemo * pCXR IMPRESSION: Severe left chest wall mass again noted. Cannot exclude opacity within the underlying left lung. The right lung is clear. * CTA chest IMPRESSION: 1. No evidence of pulmonary embolism or acute parenchymal process. 2. Right pulmonary nodularity which remains suspicious for metastasis and has been described on recent previous studies. 3. Large left breast mass most likely representing a primary breast neoplasm. Discharge diagnosis: Left sided chest pains with history AMI, suspect Costochondritis: stress test Precipitous Drop in H/H, no signs of blooding: repeat levels and stop Lovenox Anemia, acute on chronic AOCD: monitor CBC closely Stage 4 metastatic Breast Cancer: consulted Heme/Onc Ruled out Pneumonia Ruled out SIRS based upon objective data from admission, besides being tachycardia patient was afebrile, normal RR, not hypoxic and WBC was normal Hypokalemia, mild: replete H/O of "blood clot in the neck" on home therapeutic Lovenox; hold for now until Anemia stabilizes Disposition: d/c home Disposition: DC- TO HOME OR SELFCARE Time spent for discharge: 34 minutes Core Measure Documentation - Palliative Care Palliative Care/ Comfort Measures: Not Applicable - Core Measures Any of the following diagnoses?: none Exam - Constitutional Vitals: Temp Pulse Resp BP Pulse Ox 98.3 F 87 16 104/71 95 01/01/20 04:29 01/01/20 04:29 01/01/20 04:29 01/01/20 04:29 01/01/20 04:29 Plan Activity: advance as tolerated Weight Bearing Status: Weight Bear as Tolerated Diet: low fat, low salt Follow up with: PRIMARY CARE, [Primary Care Provider] - 3-5 Days
[2020-01-01 14:31] VITALS: BP 110/67
--- NOTE | 2020-01-01 19:07 | Treadmill Report ---
NUCLEAR PERFUSION SCAN REFERRING PHYSICIAN: Dr. Shayne Barba. PROTOCOL: The patient was brought to the stress lab in a postoperative state, given 10 mCi of technetium 99m at rest. The patient underwent rest imaging. The patient underwent Lexiscan stress test. At peak stress, the patient was given 26 mCi of technetium 99m. Shortly thereafter, the patient underwent for stress imaging. Technically difficult study due to breast attenuation. There is no convincing evidence of significant degree of ischemia or prior infarction. Gated wall motion reveals normal systolic performance, calculated ejection fraction of 53%, no TID. CONCLUSIONS: 1. Technically difficult study, but grossly no convincing evidence of significant degree of ischemia or prior infarction. 2. Normal left ventricular systolic performance without evidence of transient ischemic dilatation or stress-induced segmental wall motion abnormalities. JOB# [id number] LEAH/COSTA
== END 2020-01-01 15:20 | disposition home or self-care (01) | DRG 206 ==
LOC: ED 09:43 → 3A 12:23 → OBSVTOIN 12-30 08:15
PROVIDERS: ADMIT Internal Medicine; ATTEND Internal Medicine
PROC: 3E0234Z Introduction of Serum, Toxoid and Vaccine into Muscle, Percutaneous Approach (ICD-10-PCS; principal; 2019-12-30)
DX: M94.0 Chondrocostal junction syndrome [Tietze] (principal); C50.912 Malignant neoplasm of unspecified site of left female breast; D50.0 Iron deficiency anemia secondary to blood loss (chronic); J45.909 Unspecified asthma, uncomplicated; F17.200 Nicotine dependence, unspecified, uncomplicated; E87.6 Hypokalemia; Z23 Encounter for immunization; Z71.6 Tobacco abuse counseling; Z90.10 Acquired absence of unspecified breast and nipple; Z82.49 Family history of ischemic heart disease and other diseases of the circulatory system; I25.2 Old myocardial infarction; Z86.718 Personal history of other venous thrombosis and embolism; Z79.01 Long term (current) use of anticoagulants; Z92.21 Personal history of antineoplastic chemotherapy
CPT/HCPCS: 36415; 71045; 71260; 71275; 78306; 78452; 80048; 80053; 81001; 82140; 82565; 84484; 84520; 85014; 85018; 85025; 85027; 87040; 90732; 93005; 93010; 93017; 99406; G0378; A9502; A9503; J0692; J1200; J1650; J2270; J2405; J2543; J2785; J3370; J7030; J7040; Q9967

== ENCOUNTER 2020-01-02 16:57 | Emergency (ER) | payer MEDICAID ==
--- NOTE | 2020-01-02 19:02 | Event Note ---
ED Screening Note Date of service: 01/02/20 Time: 19:01 ED Screening Note: 39 y o f with hx of breast cancer presents with cc of SOB worsening today states breast tumr is leaking This initial assessment/diagnostic orders/clinical plan/treatment(s) is/are subject to change based on patients health status, clinical progression and re- assessment by fellow clinical providers in the ED. Further treatment and workup at subsequent clinical providers discretion. Patient/guardian urged not to elope from the ED as their condition may be serious if not clinically assessed and managed. Initial orders include: labs cxr main side
[2020-01-02 20:02] LABS: Basophils # (Auto) 0.1 K/mm3 (0.0-0.1); Eosinophils # (Auto) 0.1 K/mm3 (0.0-0.4); Eosinophils % (Auto) 2.2 % (0.0-4.3); Hematocrit 29.1 % (30.3-42.9); Hemoglobin 9.4 gm/dl (10.1-14.3); Lymphocytes # (Auto) 0.9 K/mm3 (1.2-5.4); Lymphocytes % (Auto) 14.9 % (13.4-35.0); Mean Corpuscular HGB Conc 32 % (30-34); Mean Corpuscular Volume 82 fl (79-97); Monocytes # (Auto) 0.6 K/mm3 (0.0-0.8); Monocytes % (Auto) 10.4 % (0.0-7.3); Platelet Count 447 K/mm3 (140-440); Red Blood Count 3.54 M/mm3 (3.65-5.03); Red Cell Distribution Width 17.1 % (13.2-15.2)
[2020-01-02 20:18] LABS: BUN/Creatinine Ratio 9; Blood Urea Nitrogen 6 mg/dL (7-17); Calcium 9.6 mg/dL (8.4-10.2); Hemolysis Index 0
--- NOTE | 2020-01-02 20:20 | XRay Report ---
Chest 2 views INDICATION: Chest pain IMPRESSION: Masslike opacity projecting over the left chest wall into the left axilla. No definite ac ermelinda cardiopulmonary abnormality is appreciated primarily on the lateral view. Signer Name: Earle Nguyen MD Signed: 01/02/2020 8:15 PM Workstation Name: [id number]
[2020-01-02 20:21] LABS: Creatine Kinase MB < 1.0 ng/mL (0.0-4.0)
--- NOTE | 2020-01-02 21:29 | Emergency Department Report ---
ED Chest Pain HPI - General Chief Complaint: Dyspnea/Respdistress Stated Complaint: AJ Time Seen by Provider: 01/02/20 21:25 Source: patient, EMS Mode of arrival: Ambulatory Limitations: No Limitations - History of Present Illness Initial Comments: Patient is a 39-year-old female that presents emergency room with complaints of chest pain, shortness of breath x7 days. Patient states that she was here recently and discharged yesterday. Patient states she was admitted to the hospital for a few days. Patient states that her pain is worsening. Patient patient states her pain is a 10 out of 10. Patient states it is in her left and right chest but her right chest is worse than her left. Patient states she has a mass on her left breast due to breast cancer and she is currently receiving chemotherapy. Patient states she had multiple test done while in the hospital. Patient states she was also cleared by authorization coordinator in the hospital. Patient's past medical record was reviewed. Patient had a negative CTA, patient had a negative stress test. MD Complaint: chest pain -: Sudden Pain Location: substernal, left chest, right chest Pain Radiation: none Severity: severe Severity scale (0 -10): 10 Quality: sharp Consistency: constant Improves With: rest Worsens With: palpation, movement re: dyspnea. denies: nausea, vomting, diaphoresis, sense of impending doom Other Symptoms: denies: cough, fever, syncope, rash, acid taste in mouth, leg sw elling, palpitations, burping Treatments Prior to Arrival: none Aspirin use within the Past 7 Days: (0) No - Related Data On Oral Contraceptives: No Home Medications Medication Instructions Recorded Confirmed Last Taken Ambien 10 mg PO HS 12/29/19 12/29/19 12/27/19 Benadryl 50 mg PO Q6H PRN 12/29/19 12/29/19 12/28/19 Lovenox 80 units SC BID 12/29/19 12/29/19 12/29/19 06:00 Miralax 3350 2 tbsp PO BID 12/29/19 12/29/19 12/29/19 Previous Rx's Medication Instructions Recorded Last Taken Type Ibuprofen [Motrin 800 MG tab] 800 mg PO Q8HR PRN #30 tablet 01/03/20 Unknown Rx oxyCODONE 40 mg PO Q4H PRN #15 01/03/20 Unknown Rx Allergies Allergy/AdvReac Type Severity Reaction Status Date / Time No Known Allergies Allergy Verified 12/29/19 13:26 Heart Score - HEART Score History: Slightly suspicious EKG: Normal Age: < 45 Risk factors: > 3 risk factors or hx of atherosclerotic disease Troponin: < normal limit HEART Score: 2 ED Review of Systems ROS: Stated complaint: AJ Other details as noted in HPI Constitutional: denies: chills, fever Eyes: denies: eye pain, eye discharge, vision change ENT: denies: ear pain, throat pain Respiratory: shortness of breath. denies: cough, wheezing Cardiovascular: chest pain. denies: palpitations Endocrine: no symptoms reported Gastrointestinal: denies: abdominal pain, nausea, diarrhea Genitourinary: denies: urgency, dysuria, discharge Musculoskeletal: denies: back pain, joint swelling, arthralgia Skin: denies: rash, lesions Neurological: denies: headache, weakness, paresthesias Psychiatric: denies: anxiety, depression Hematological/Lymphatic: denies: easy bleeding, easy bruising ED Past Medical Hx - Past Medical History Previous Medical History?: Yes Hx Heart Attack/AMI: Yes Hx Asthma: Yes Additional medical history: breast cancer - Surgical History Past Surgical History?: Yes Additional Surgical History: masectomy - Family History Family history: no significant - Social History Smoking Status: Never Smoker Substance Use Type: None - Medications Home Medications: Home Medications Medication Instructions Recorded Confirmed Last Taken Type Ambien 10 mg PO HS 12/29/19 12/29/19 12/27/19 History Benadryl 50 mg PO Q6H PRN 12/29/19 12/29/19 12/28/19 History Lovenox 80 units SC BID 12/29/19 12/29/19 12/29/19 06:00 History Miralax 3350 2 tbsp PO BID 12/29/19 12/29/19 12/29/19 History Ibuprofen [Motrin 800 MG tab] 800 mg PO Q8HR PRN #30 tablet 01/03/20 Unknown Rx oxyCODONE 40 mg PO Q4H PRN #15 01/03/20 Unknown Rx ED Physical Exam - General Limitations: No Limitations General appearance: alert, in no apparent distress - Head Head exam: Present: atraumatic, normocephalic - Eye Eye exam: Present: normal appearance - ENT ENT exam: Present: mucous membranes moist - Neck Neck exam: Present: normal inspection - Respiratory Respiratory exam: Present: normal lung sounds bilaterally, chest wall tenderness. Absent: respiratory distress, wheezes, rales, rhonchi, accessory muscle use, decreased breath sounds, prolonged expiratory - Cardiovascular Cardiovascular Exam: Present: regular rate, normal rhythm. Absent: systolic murmur, diastolic murmur, rubs, gallop - GI/Abdominal GI/Abdominal exam: Present: soft, normal bowel sounds. Absent: distended, tenderness, guarding - Rectal Rectal exam: Present: deferred - Extremities Exam Extremities exam: Present: normal inspection - Back Exam Back exam: Present: normal inspection - Neurological Exam Neurological exam: Present: alert, oriented X3 - Psychiatric Psychiatric exam: Present: normal affect, normal mood - Skin Skin exam: Present: warm, dry, intact, normal color. Absent: rash ED Course Vital Signs 01/02/20 01/02/20 01/02/20 17:04 19:05 20:53 Temperature 99.1 F 99.1 F Pulse Rate 109 H 111 H 92 H Respiratory 18 18 17 Rate Blood Pressure 106/62 106/62 O2 Sat by Pulse 97 97 Oximetry 01/02/20 01/02/20 01/02/20 21:00 21:15 21:30 Temperature Pulse Rate 91 H 99 H 93 H Respiratory 17 10 L 14 Rate Blood Pressure 119/77 120/85 119/81 O2 Sat by Pulse 97 98 99 Oximetry 01/02/20 01/02/20 01/02/20 21:45 22:00 22:16 Temperature Pulse Rate 96 H 97 H 96 H Respiratory 17 11 L 18 Rate Blood Pressure 114/89 119/68 117/71 O2 Sat by Pulse 100 100 97 Oximetry - Reevaluation(s) Reevaluation #1: Patient is complaining of an increase in her chest pain. Patient will be given Dilaudid and Benadryl. 01/02/20 22:00 Reevaluation #2: Patient states her pain improved with the Dilaudid. Patient states the pain is starting to increase again. Patient will be given another 1 mg of Dilaudid and prepared for discharge. 01/03/20 00:01 Reevaluation #3: I discussed all results and clinical findings with patient. I discussed plan of care with patient. Patient agrees with plan of care. Patient is stable for discharge. Patient will be discharged home. Patient given discharge instructions. Patient voiced understanding of discharge instructions. Patient states she has 20 mg hydrocodone at home. Patient will be given 40 mg hydrocodone for severe pain. Patient instructed to take her 20 mg hydrocodone for moderate pain and to take ibuprofen 800 for mild pain. Patient information faxed over to a local cardiology group for further evaluation and treatment. Patient had a negative stress test at her last visit. Patient also had a negative CTA at her last visit. 01/03/20 00:20 ELIZA score - Eliza Score Age > 65: (0) No Aspirin use within the Past 7 Days: (0) No 3 or more CAD Risk Factors: (1) Yes 2 or more Angina events in past 24 hrs: (1) Yes Known CAD with more than 50% Stenosis: (1) Yes Elevated Cardiac Markers: (0) No ST Deviation Greater than 0.5mm: (0) No ELIZA Score: 3 ED Medical Decision Making - Lab Data Result diagrams: 01/02/20 19:47 01/02/20 19:47 - EKG Data -: EKG Interpreted by [facility] EKG shows normal: sinus rhythm, axis, intervals, QRS complexes, ST-T waves Rate: normal - Radiology Data Radiology results: report reviewed Chest 2 views INDICATION: Chest pain IMPRESSION: Masslike opacity projecting over the left chest wall into the left axilla. No definite acute cardiopulmonary abnormality is appreciated primarily on the lateral view. - Medical Decision Making Patient is a 39-year-old female that presents emergency room with complaints of chest pain. Patient's chest pain was right side greater than left. Patient's chest pain was completely reproducible with palpation. Patient's chest pain appears to be secondary to chest wall pain. Patient shortness of breath appears to be secondary to the chest wall pain and the large tumor on her left chest. Patient is stable for discharge. Patient was recently admitted to the hospital for chest pain shortness of breath. Patient had a negative stress test and a negative CTA. Patient does not require admission or further evaluation in the ER. Patient stable for discharge. Patient discharged home. Patient labs unremarkable. Patient's troponin is negative. Patient's chest x-ray negative. Patient given stronger oxycodone and given ibuprofen for treatment. Patient instructed to follow-up with cardiology today for further evaluation treatment. Patient instructed follow-up with her primary care. Patient given discharge instructions. - Differential Diagnosis cp. sob. chest wall pain. Critical care attestation.: If time is entered above; I have spent that time in minutes in the direct care of this critically ill patient, excluding procedure time. ED Disposition Clinical Impression: SOB (shortness of breath), Acute chest wall pain Chest pain Qualifiers: Chest pain type: unspecified Qualified Code(s): R07.9 - Chest pain, unspecified Anemia Qualifiers: Anemia type: unspecified type Qualified Code(s): D64.9 - Anemia, unspecified Breast cancer Qualifiers: Breast location: unspecified site of breast Estrogen receptor status: unspecified Patient sex: female Laterality: left Qualified Code(s): C50.912 - Malignant neoplasm of unspecified site of left female breast Disposition: - TO HOME OR SELFCARE Is pt being admited?: No Does the pt Need Aspirin: No Condition: Stable Instructions: Chest Pain (ED), Costochondritis (ED) Additional Instructions: Patient to follow-up with primary care in 2 to 3 days. Patient to follow-up with cardiology in 2 to 3 days. Patient to rest. Patient to increase water. Patient to avoid strenuous exercise or heavy lifting until cleared by PCP or cardio. Patient to take Tylenol or ibuprofen as needed for pain. Patient to take meds as directed. Patient to return to the ER if condition worsens, changes or new symptoms arise. Prescriptions: Ibuprofen [Motrin 800 MG tab] 800 mg PO Q8HR PRN #30 tablet PRN Reason: Pain, Mild (1-3) oxyCODONE 40 mg PO Q4H PRN #15 PRN Reason: Pain, Moderate (4-6) Referrals: PRIMARY CARE,MD [Primary Care Provider] - 2-3 Days Time of Disposition: 00:24
[2020-01-02] MEDS ORDERED: diphenhydrAMINE 50 MG/ML VIAL IV ONE (22:11)
[2020-01-02] MEDS ORDERED: HYDROmorphone 2 MG/1 ML INJ IV ONE (22:11)
[2020-01-02] MEDS ORDERED: HYDROmorphone 2 MG/1 ML INJ ONE (22:14)
[2020-01-02] MEDS ORDERED: diphenhydrAMINE 50 MG/ML VIAL ONE (22:14)
[2020-01-02] MEDS ORDERED: HYDROmorphone 1 MG/1 ML INJ IV ONE (23:44)
[2020-01-03] MEDS ORDERED: diphenhydrAMINE 50 MG/ML VIAL IV ONE (00:30)
[2020-01-03 00:44] VITALS: BP 120/73
== END 2020-01-03 00:47 | disposition home or self-care (01) ==
LOC: ED 16:57
DX: R06.02 Shortness of breath (principal); R06.00 Dyspnea, unspecified; R07.89 Other chest pain; I25.2 Old myocardial infarction; J45.909 Unspecified asthma, uncomplicated; C50.919 Malignant neoplasm of unspecified site of unspecified female breast; Z79.899 Other long term (current) drug therapy
CPT/HCPCS: 36415; 71046; 80048; 82550; 82553; 84484; 85025; 93005; 93010; 96374; 96375; 96376; 99285; J1170; J1200

== ENCOUNTER 2020-01-04 17:34 | Emergency (ER) | payer MEDICAID ==
[2020-01-04] MEDS ORDERED: FAMOTIDINE 20 MG/2 ML INJ IV ONE (20:58)
[2020-01-04] MEDS ORDERED: diphenhydrAMINE 25 MG CAP PO ONE (20:58)
[2020-01-04] MEDS ORDERED: ONDANSETRON 4 MG/2 ML INJ IV ONE (20:58)
[2020-01-04] MEDS ORDERED: SODIUM CHLORIDE 0.9% 500 ML 500 ML IV ONE (20:58)
[2020-01-04] MEDS ORDERED: SUCRALFATE 1 GM/10 ML ORAL LIQD PO ONE (20:59)
[2020-01-04] MEDS ORDERED: ACETAMINOPHEN 325 MG TAB PO ONE (20:59)
--- NOTE | 2020-01-04 21:03 | Emergency Department Report ---
ED General Adult HPI - General Chief complaint: Dyspnea/Respdistress Stated complaint: CHEST PAIN, SOB Time Seen by Provider: 01/04/20 20:48 Source: patient, RN notes reviewed, old records reviewed Mode of arrival: Ambulatory Limitations: No Limitations - History of Present Illness Initial comments: During the entire history and physical examination, I am hand developer and escorted by nurse Abbey Arreola I have evaluated this patient in the past. Please note that the patient has another medical record number; [id number] Patient has been seen in this hospital in emergency department multiple times, including December 28, December 31, January 02, September 26, November 05, December 05, December 06, December 11, December 17. She has had extensive objective diagnostic testing. She had 2 CT scans of the chest which were negative for pulmonary embolism, the last of which was December 022019 She also had a cardiac nuclear stress test on January 01, this week, which was negative for cardiac disease. Her oncologist is Dr. José. 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 She presents to the ER today with a recurrent complaint of chest wall pain, present intermittently for 1 month, radiates to the right side of the chest, reported nausea vomiting, reported shortness of breath, reported diarrhea, and reported weakness. Her pain is intermittent. Her shortness of breath is intermittent. Her nausea and vomiting is resolved. Her diarrhea is intermittent. The patient denies fever. The patient was seen yesterday, given hydromorphone, x2, and intravenous Benadryl. This apparently improved her symptoms. The patient states that she called her doctor or oncologist who instructed her to come to the emergency room. She has had multiple negative troponins. In addition, she is supposed to be on Lovenox therapy, but as per recent josé miguel jacksonrleonard summary, "hold now until anemia stabilizes." Today, the patient is treated with Zofran, Tylenol, Pepcid and IV fluids. There is no active vomiting in the emergency room -: Gradual, days(s) Location: chest Radiation: back Quality: aching Consistency: intermittent Improves with: medication - Related Data Home Medications Medication Instructions Recorded Confirmed Last Taken HYDROcodone/ACETAMINOPHEN [Vicodin 1 each PO Q6H 12/02/19 12/02/19 12/01/19 HP 10-300 mg TAB] Isosorb Dinit/Hydralazine [Bidil 20 mg TID 12/06/19 12/05/19 08:00 20/37.5MG] Metoprolol Xl [Metoprolol 50 mg PO QDAY 12/06/19 12/06/19 12/05/19 08:00 SUCCINATE ER TAB] Previous Rx's Medication Instructions Recorded Last Taken Type Morphine ER [Ms Contin ER] 15 mg PO DAILY #10 tablet 12/05/19 Unknown Rx Metoclopramide [Reglan] 10 mg PO Q6HR PRN #30 tablet 12/06/19 Unknown Rx Pantoprazole [Protonix TAB] 20 mg PO QDAY #30 tablet.dr 12/06/19 Unknown Rx Mineral Oil [Fleet Mineral Oil] 133 ml [place] DAILY PRN #3 bottle 12/11/19 Unknown Rx Ondansetron [Zofran Odt] 4 mg PO Q8HR PRN #20 tab.rapdis 12/11/19 Unknown Rx Polyethylene Glycol 3350 [Miralax] 17 gm PO DAILY PRN #14 dose 12/11/19 Unknown Rx Ondansetron [Zofran Odt] 4 mg PO Q8HR #10 tab.rapdis 12/17/19 Unknown Rx Pantoprazole [Protonix] 40 mg PO QDAY #30 tablet 12/17/19 Unknown Rx Allergies Allergy/AdvReac Type Severity Reaction Status Date / Time pineapple Allergy Rash Verified 12/02/19 15:01 ED Review of Systems ROS: Stated complaint: CHEST PAIN, SOB Other details as noted in HPI Constitutional: malaise. denies: fever Eyes: denies: eye discharge ENT: denies: congestion Respiratory: shortness of breath Cardiovascular: chest pain Gastrointestinal: nausea, vomiting, diarrhea Genitourinary: as per HPI Musculoskeletal: as per HPI, myalgia Skin: as per HPI Neurological: weakness Psychiatric: as per HPI Hematological/Lymphatic: as per HPI ED Past Medical Hx - Past Medical History Previous Medical History?: Yes Hx CVA: Yes Hx Heart Attack/AMI: Yes (2013) Hx Congestive Heart Failure: No Hx Diabetes: No Hx Asthma: Yes Hx COPD: No - Surgical History Past Surgical History?: Yes Hx Breast Surgery: Yes (Left breast removed) - Social History Smoking Status: Former Smoker Substance Use Type: None - Medications Home Medications: Home Medications Medication Instructions Recorded Confirmed Last Taken Type HYDROcodone/ACETAMINOPHEN [Vicodin 1 each PO Q6H 12/02/19 12/02/19 12/01/19 History HP 10-300 mg TAB] Morphine ER [Ms Contin ER] 15 mg PO DAILY #10 tablet 12/05/19 Unknown Rx Isosorb Dinit/Hydralazine [Bidil 20 mg TID 12/06/19 12/05/19 08:00 History 20/37.5MG] Metoclopramide [Reglan] 10 mg PO Q6HR PRN #30 tablet 12/06/19 Unknown Rx Metoprolol Xl [Metoprolol 50 mg PO QDAY 12/06/19 12/06/19 12/05/19 08:00 History SUCCINATE ER TAB] Pantoprazole [Protonix TAB] 20 mg PO QDAY #30 tablet. 12/06/19 Unknown Rx Mineral Oil [Fleet Mineral Oil] 133 ml WI DAILY PRN #3 bottle 12/11/19 Unknown Rx Ondansetron [Zofran Odt] 4 mg PO Q8HR PRN #20 tab.rapdis 12/11/19 Unknown Rx Polyethylene Glycol 3350 [Miralax] 17 gm PO DAILY PRN #14 dose 12/11/19 Unknown Rx Ondansetron [Zofran Odt] 4 mg PO Q8HR #10 tab.rapdis 12/17/19 Unknown Rx Pantoprazole [Protonix] 40 mg PO QDAY #30 tablet 12/17/19 Unknown Rx ED Physical Exam - General Limitations: No Limitations General appearance: alert, in no apparent distress - Head Head exam: Present: atraumatic, normocephalic - Eye Eye exam: Present: normal appearance, EOMI. Absent: nystagmus - ENT ENT exam: Present: normal exam, normal orophraynx, mucous membranes moist, normal external ear exam - Neck Neck exam: Present: normal inspection, full ROM. Absent: tenderness, meningismus - Respiratory Respiratory exam: Present: normal lung sounds bilaterally, other (There is a left-sided chronic appearing breast mass, without pus, streaking or tenderness. Chaperoned by nurse Abbey Huynh). Absent: respiratory distress, wheezes, rales, rhonchi, stridor - Cardiovascular Cardiovascular Exam: Present: normal rhythm, tachycardia, normal heart sounds. Absent: systolic murmur, diastolic murmur, rubs, gallop - GI/Abdominal GI/Abdominal exam: Present: soft, normal bowel sounds. Absent: distended, tenderness, guarding, rebound, rigid, pulsatile mass - Extremities Exam Extremities exam: Present: normal inspection, full ROM, other (2+ pulses noted in the bilateral upper and lower extremities. There is no palpable cord. negative Homans sign. Muscular compartments are soft. The pelvis is stable.). Absent: pedal edema, calf tenderness - Back Exam Back exam: Present: normal inspection, full ROM. Absent: tenderness, CVA tenderness (R), CVA tenderness (L), paraspinal tenderness, vertebral tenderness - Neurological Exam Neurological exam: Present: alert, other (There is no facial droop. The tongue is midline. Extraocular movements are intact bilaterally. There is 5 out of 5 strength in bilateral upper and lower extremities. Sensation is intact to light touch bilateral upper and lower extremities. There is a normal gait.) - Psychiatric Psychiatric exam: Present: anxious - Skin Skin exam: Present: warm, dry, intact, normal color. Absent: rash ED Course Vital Signs 01/04/20 01/04/20 01/04/20 17:40 20:58 21:00 Temperature 99.1 F Pulse Rate 101 H 95 H Respiratory 18 20 18 Rate Blood Pressure 126/71 Blood Pressure 116/78 [Right] O2 Sat by Pulse 99 98 100 Oximetry - Reevaluation(s) Reevaluation #1: 01/04/20 21:51 Differential diagnosis, including not limited to: GERD, gastritis, hiatal hernia, cancer pain, narcotic dependence Assessment and plan: 39-year-old female with multiple complaints, including chest pain, nausea and vomiting, shortness of breath and diarrhea. No active nausea, vomiting or diarrhea noted today. She has presented multiple times for similar complaints. Her objective testing has demonstrated multiple negative troponins, multiple scans negative for pulmonary emboli, and a negative cardiac stress test. She has had multiple scans which have demonstrated left-sided presumed chest wall mass, breast cancer. She is following up with an oncologist for this. Her examination today appears to be similar to prior examinations that I have personally performed on this patient. We will treat her symptoms with nonnarcotic therapy. Screening laboratory studies ordered. Of note, she had laboratory studies yesterday, which were fairly unremarkable. It is very unlikely that the patient will have a condition today which will require hospitalization. She will need to follow-up with an outpatient primary care doctor or oncologist. Reevaluation #2: 01/04/20 22:12 Tachycardia resolved. Patient tolerating liquid feeds. Laboratory studies appear to be at baseline. EKG unchanged from prior. Troponin negative x1. Patient having days and weeks of symptoms. Her examination today appears to be similar to prior examinations. Reevaluation #3: 01/04/20 22:33 No active vomiting. Patient had an x-ray of the chest 2 days ago which was negative for acute disease. She is not hypoxic at this time. She is equal breath sounds bilaterally. Do not clinically suspect pneumonia or pneumothorax. Tachycardia resolved. No active nausea or vomiting. No witnessed diarrhea. Her examination today is very similar to prior examinations. ED Medical Decision Making - Lab Data Result diagrams: 01/04/20 21:40 01/04/20 21:40 Vital Signs 01/04/20 01/04/20 01/04/20 17:40 20:58 21:00 Temperature 99.1 F Pulse Rate 101 H 95 H Respiratory 18 20 18 Rate Blood Pressure 126/71 Blood Pressure 116/78 [Right] O2 Sat by Pulse 99 98 100 Oximetry Lab Results 01/04/20 Range/Units 21:40 WBC 5.6 (4.5-11.0) K/mm3 RBC 3.07 L (3.65-5.03) M/mm3 Hgb 8.4 L (10.1-14.3) gm/dl Hct 25.1 L (30.3-42.9) % MCV 82 (79-97) fl MCH 28 (28-32) pg MCHC 34 (30-34) % RDW 17.1 H (13.2-15.2) % Plt Count 444 H (140-440) K/mm3 Lymph % (Auto) 18.4 (13.4-35.0) % [place] % (Auto) 11.2 H (0.0-7.3) % Eos % (Auto) 1.6 (0.0-4.3) % Baso % (Auto) 0.5 (0.0-1.8) % Lymph # 1.0 L (1.2-5.4) K/mm3 [place] # 0.6 (0.0-0.8) K/mm3 Eos # 0.1 (0.0-0.4) K/mm3 Baso # 0.0 (0.0-0.1) K/mm3 Seg Neutrophils % 68.3 (40.0-70.0) % Seg Neutrophils # 3.8 (1.8-7.7) K/mm3 - EKG Data -: EKG Interpreted by Me EKG shows normal: sinus rhythm Rate: tachycardia - EKG Data 01/04/20 22:11 Tachycardia, sinus, 100, normal axis, low voltage, QTC 481 ms. This is not a STEMI. It is unchanged from prior EKG - Radiology Data Radiology results: pending, report reviewed, image reviewed Print Report Referring Physician: MYKE NELSON Patient Name: SUKHDEV ARREAGA Date of : 1980 Sex: Female Report Date: 2020-01-02 Report Status: [place] [id number] XRay Report Signed Patient: SUKHDEV ARREAGA MR#: [id number] : 1980 Acct:[id number] Age/Sex: 39 / F ADM Date: 01/02/20 Loc: ED Attending Dr: Ordering Physician: CARLOS A CHRISTIAN Date of Service: 01/02/20 Procedure(s): XR chest routine 2V Accession Number(s): [id number] cc: CARLOS A CHRISTIAN Fluoro Time In Minutes: Chest 2 views INDICATION: Chest pain IMPRESSION: Masslike opacity projecting over the left chest wall into the left axilla. No definite acute cardiopulmonary abnormality is appreciated primarily on the lateral view. Signer Name: Earle Nguyen MD Signed: 01/02/2020 8:15 PM Workstation Name: [id number] Transcribed By: BC Dictated By: Earle Nguyen MD Electronically Authenticated By: Earle Nguyen MD Signed Date/Time: 01/02/202014 DD/ 14 TD/TT: Critical care attestation.: If time is entered above; I have spent that time in minutes in the direct care of this critically ill patient, excluding procedure time. ED Disposition Clinical Impression: History of chest pain, History of nausea and vomiting Disposition: DC-01 TO HOME OR SELFCARE Is pt being admited?: No Does the pt Need Aspirin: No Condition: Stable Additional Instructions: Continue the various medications that were recently prescribed for the patient. Avoid using the MiraLAX, as this may induce diarrhea and or easy bowel movements. This should only be taken for constipation. Avoid using the mineral oil, as this may facilitate bowel movements and cause diarrhea. Patient may take the additional/previously prescribed pain medications and nausea medications. We recommend the patient follow-up with her primary care doctor or oncologist within the next 7 to 10 days. Avoid consumption of Motrin, ibuprofen, Naprosyn, Aleve, heavy and spicy foods. Return to the emergency room right away with new, worsened or different symptoms, or symptoms not present on the initial emergency room evaluation. Referrals: SHENA JOSÉ MD [Staff Physician] - 3-5 Days NAYANA MALIN MD [Staff Physician] - 3-5 Days
[2020-01-04 21:51] LABS: Basophils % (Auto) 0.5 % (0.0-1.8); Eosinophils # (Auto) 0.1 K/mm3 (0.0-0.4); Eosinophils % (Auto) 1.6 % (0.0-4.3); Hematocrit 25.1 % (30.3-42.9); Hemoglobin 8.4 gm/dl (10.1-14.3); Lymphocytes % (Auto) 18.4 % (13.4-35.0); Mean Corpuscular HGB Conc 34 % (30-34); Mean Corpuscular Volume 82 fl (79-97); Monocytes # (Auto) 0.6 K/mm3 (0.0-0.8); Monocytes % (Auto) 11.2 % (0.0-7.3); Platelet Count 444 K/mm3 (140-440); Red Blood Count 3.07 M/mm3 (3.65-5.03); Red Cell Distribution Width 17.1 % (13.2-15.2)
[2020-01-04 22:02] LABS: INR 1.05 (0.87-1.13)
[2020-01-04 22:06] LABS: Alanine Aminotransferase 5 units/L (7-56); Albumin 3.7 g/dL (3.9-5); BUN/Creatinine Ratio 15; Blood Urea Nitrogen 9 mg/dL (7-17); Calcium 8.9 mg/dL (8.4-10.2); Hemolysis Index 0
[2020-01-04 23:29] VITALS: BP 116/81
== END 2020-01-04 23:21 | disposition home or self-care (01) ==
LOC: MERGE 17:34 → ED 17:34
DX: R07.89 Other chest pain (principal); R11.2 Nausea with vomiting, unspecified; I25.2 Old myocardial infarction; J45.909 Unspecified asthma, uncomplicated; Z87.891 Personal history of nicotine dependence; Z91.018 Allergy to other foods; Z79.899 Other long term (current) drug therapy
CPT/HCPCS: 36415; 80053; 82550; 83735; 84484; 84702; 85025; 85610; 93005; 93010; 96374; 96375; 99283; J1642; J2405; J7040